=== PATIENT | female | born 1975 | race Caucasian/White ===

== ENCOUNTER 2016-12-16 16:08 | Outpatient (CLI) | payer MEDICARE | END 2016-12-16 16:18 | LOC: LABRHC 16:08 | PROVIDERS: ATTEND Family Medicine | DX: E11.42 Type 2 diabetes mellitus with diabetic polyneuropathy (principal) | CPT/HCPCS: 83036; 84702 ==

== ENCOUNTER 2017-01-02 14:35 | Outpatient (CLI) | payer MEDICARE | END 2017-01-02 14:36 | LOC: LAB 14:35 | PROVIDERS: ATTEND Family Medicine | DX: F15.10 Other stimulant abuse, uncomplicated (principal) | CPT/HCPCS: 80377; G0481 ==

== ENCOUNTER 2017-01-05 11:16 | Emergency (ER) | payer MEDICARE ==
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
--- NOTE | 2017-01-05 15:06 | Diagnostic Imaging Report ---
[facility] [id number] [facility].[address] [id number] Report Submission Date: Jan 05, 2017 12:28:33 PM RN PRACTITIONER Patient Study Name: GAMA VALENTINO Date: Jan 05, 2017 11:39:46 AM RN PRACTITIONER Modality Type: US Gender: F Description: TRANSVAGINAL PELVIS : 79 Institution: 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 FINDINGS: Singular intrauterine gestation is identified with crown-rump length of 3.1 cm consistent with a 10 week 0 day gestation. Yolk sac is normal. heart rate is identified with heart rate of 158 beats per min. Neither right or left ovary were visualized. No free fluid is seen in the pelvis. IMPRESSION: 1. Single viable intrauterine gestation estimated at 10 weeks 0 days. 2. heart rate of 158 beats per min Electronically signed on Jan 05, 2017 12:28:33 PM RN PRACTITIONER by: Sarath NEWTON
[2017-01-05 19:58] VITALS: BP 128/89
== END 2017-01-05 12:25 | disposition home or self-care (01) ==
LOC: ED 11:16
DX: T14.90 Injury, unspecified (principal); Y04.2XXA Assault by strike against or bumped into by another person, initial encounter; Y93.9 Activity, unspecified; Y99.9 Unspecified external cause status; Z33.1 Pregnant state, incidental; Z3A.10 10 weeks gestation of pregnancy
CPT/HCPCS: 76801; 99282; 99283